=== PATIENT | female | born 1980 | race Asian ===

== ENCOUNTER → 2016-07-12 | Outpatient (CLI) | payer BC ==
[~2016-07-12] MED LIST: ASCO500C43; MTR600X PO; OXYC5TAB PO; PRENTAB26 PO; VITAMIN D
[2016-07-12 13:28] LABS: BASO % 0.2 %; BASO ABS # 0.01 K/uL (0-0.2); COMPLETE YES; EOS % 2.5 %; HEMATOCRIT 39.6 % (37-47); IG% 0.2 %; LYMPH ABS # 1.69 K/uL (1.2-3.4); MEAN CELL VOLUME 85.7 fL (80-100); MEAN CORPUSCULAR HEMOGLOBIN 27.9 pg (25-34); MEAN CORPUSCULAR HGB CONC 32.6 g/dl (32-36); MEAN PLATELET VOLUME 9.9 fL (7.4-10.4); MONO % 6.1 %; PLATELET COUNT 266 K/uL (130-400); RED BLOOD COUNT 4.62 M/uL (4.2-5.4); WHITE BLOOD COUNT 4.45 K/uL (4.8-10.8)
[2016-07-12 13:31] LABS: THYROID STIMULATING HORMONE 2.1 uIu/ml (0.300-4.500)
== END | disposition home or self-care (01) ==
LOC: C.LABMFLN 08:53
PROVIDERS: ATTEND Family Medicine
DX: R53.83 Other fatigue (principal); Z13.1 Encounter for screening for diabetes mellitus

== ENCOUNTER 2023-06-18 07:44 | Observation (INO) ==
[2023-06-18] MEDS ORDERED: ATROPINE SULFATE 0.1 MG/ML 10ML SYR IV PRN (08:24)
[2023-06-18] MEDS ORDERED: fentaNYL citrate PF 100 MCG/2 ML VIAL IV PRN (08:24)
[2023-06-18] MEDS ORDERED: ePHEDrine sulfate 50 MG/ML AMP IV PRN (08:24)
[2023-06-18] MEDS ORDERED: fentaNYL citrate PF 100 MCG/2 ML VIAL ONE (08:40)
[2023-06-18] MEDS ORDERED: MIDAZOLAM HCL 1 MG/ML 2ML VIAL ONE (08:40)
--- NOTE | 2023-06-18 08:41 | Anesthesiology Consultation ---
Date of Service June 18, 2023 Assessment & Plan Chart Review Chart Review: Acceptable Risk for Surgery Consults Requested none ASA ASA1 Proposed Anesthesia Anesthesia Type: General Risk / Benefits Reviewed With: PT / POA / Parent / Guardian, Accepts Plan and Informed Consent Obtained History Surgery Operation Date: 06/18/23 09:05 Proposed Procedures p Right Tibia Open Reduction Internal Fixation - Elton Jensen Garland MD Height/Weight Height: 5 ft 2 in Weight: 64.3 kg Allergies Allergy/AdvReac Type Severity Reaction Status Date / Time No Known Allergies Allergy Verified 06/18/23 08:29 Medications Home Medications Medication Instructions Recorded Confirmed Last Taken acetaminophen [Tylenol] 1,000 mg PO Q8 PRN Pain 05/16/20 06/18/23 06/17/23 15:00 glucosamine HCl 500 mg tablet 500 mg PO BID 02/22/22 06/18/23 06/16/23 multivitamin 1 tab PO QAM 02/22/22 06/18/23 06/16/23 cholecalciferol (vitamin D3) 125 25 mcg (0.2 x 125 mcg (5,000 04/08/23 06/18/23 06/16/23 mcg (5,000 unit) tablet unit)) PO DAILY #30 tabs hydrocodone 5 mg-acetaminophen 325 1 - 2 tab PO Q6H PRN pain #20 tabs 06/16/23 06/18/23 06/18/23 06:30 mg tablet NPO Date Last Intake of Fluids: 06/18/23 Time Last Intake of Fluids: 00:00 Date Last Intake of Solids: 06/18/23 Time Last Intake of Solids: 00:00 Past Medical History Medical History Medial epicondylitis, right elbow Common migraine Vitamin D insufficiency Encounter for mammogram to establish baseline mammogram Diabetes mellitus screening Lipid screening Preventive measure History of female infertility Exercise / Class Metabolic Activity II 4-5 Yardwork/Stairs/Walk up hill Past Family History Family History Father Hypertension Dyslipidemia Coronary heart disease Denies family history of Ovarian cancer Clotting disorder Breast cancer Uterine cancer Past Surgical History Surgical History Status post hysteroscopy History of section Past Anesthesia History No Hx of Anesthesia Complications and No Family Hx of Anesthesia Complications History of PONV No Hx of PONV and No Hx of Motion Sickness Social History Smoking Status: Never smoker Do You Dip or Chew Tobacco: No Hx Alcohol Use: Yes Physical Exam Vital Signs Last Vital Signs Temp 98.4 F 06/18/23 08:25 Pulse 69 06/18/23 08:25 Resp 16 06/18/23 08:25 BP 129/76 06/18/23 08:25 Pulse Ox 99 06/18/23 08:25 O2 Del Method Room Air 06/18/23 08:25 ENMT Mouth: no dentition abnormality Thyromental Distance: > or= 3.5 Finger Breadths Mallampati Class: II Neck normal visual inspection Respiratory normal respiratory effort Auscultation: lungs clear to auscultation bilaterally Cardiovascular Rate/Rhythm: regular rate and regular rhythm Testing Laboratory Results 06/18/23 07:55 POC Ur Test NEG
[2023-06-18] MEDS ORDERED: LIDOCAINE 2% 2 ML VIAL/AMP(20MG/ML) INFIL ONE (08:43)
[2023-06-18] MEDS ORDERED: PROPOFOL IV EMULSION 10 MG/ML 20 ML VIAL IV ONE (08:43)
[2023-06-18] MEDS ORDERED: ROCURONIUM BROMIDE 10 MG/ML 5 ML VIAL IV ONE (08:43)
[2023-06-18] MEDS ORDERED: DEXAMETHASONE SOD INJ 4 MG/ML VIAL ONE (08:44)
[2023-06-18] MEDS ORDERED: ONDANSETRON INJ 2 MG/ML 2 ML VIAL ONE ×2 (08:44→11:59)
--- NOTE | 2023-06-18 08:57 | History & Physical Bridge Note ---
Date of Service June 18, 2023 History & Physical Bridge Note I have examined the patient, reviewed the History & Physical and in the interval since the performance of the History & Physical I have noted the following changes of clinical significance: no changes noted
[2023-06-18] MEDS ORDERED: ROPIVACAINE 0.5% 5 MG/ML 30 ML VIAL ONE (09:01)
[2023-06-18] MEDS: LACTATED RINGER'S 1,000 ML IV SCH (09:05)
[2023-06-18] MEDS: ceFAZolin 2000MG 2,000 MG/15 ML SYR IV SCH (09:21)
[2023-06-18] MEDS ORDERED: HYDROmorphone INJ 2 MG/ML SYR/VIAL ONE (09:48)
[2023-06-18] MEDS ORDERED: GLYCOPYRROLATE 0.2 MG/ML VIAL ONE (11:53)
[2023-06-18] MEDS ORDERED: NEOSTIGMINE METHYLSULFATE 1 MG/ML 10ML VIAL ONE (11:53)
[2023-06-18] MEDS: BUPIVACAINE 0.5 % 5 MG/1 ML MPF 30ML VIAL ONE (12:07)
[2023-06-18] MEDS: LIDOCAINE 1%/EPINEPHRINE 1:100,000 20 ML VIAL ONE (12:08)
--- NOTE | 2023-06-18 12:33 | Post Operative Brief Note ---
Immediate Post Op Note v1 Date of Surgery June 18, 2023 Pre & Post Diagnosis Operation Date: 06/18/23 09:05 Pre-Op Diagnosis: Right Tibia Fracture Post-Op Diagnosis: Right Tibia Fracture I identified the patient and participated in the time-out.: Yes Procedure Operation Date: 06/18/23 09:05 Actual Procedures p Right Tibia Open Reduction Internal Fixation(Right) - Elton Garland MD Surgeon Elton Garland MD Well Logger C CARIDAD Montez (No fellow avil) Estimated Blood Loss 25 Findings Consistent with Post-Op Diagnosis Fluids 900 cc Complications none
--- NOTE | 2023-06-18 12:35 | Operative Report ---
Post Operative Report Pre & Post Diagnosis Operation Date: 06/18/23 09:05 Pre-Op Diagnosis: Right Distal 1/3 Tibia Fracture Post-Op Diagnosis: Right Distal 1/3 Tibia Fracture I identified the patient and participated in the time-out.: Yes Procedure Operation Date: 06/18/23 09:05 Actual Procedures p Right Distal 1/3 Tibia Fracture Open Reduction Internal Fixation(Right) - Elton Garland MD Surgeon Elton Garland MD Restaurant And Bar Manager FANNY Holt-C (No fellow avil) Estimated Blood Loss 25 Findings See Below Displaced, rotated Right Distal 1/3 Tibia Fracture Fluids 900 cc Specimens n/a Anesthesia Type General Regional Complications none Indications The patient is a 43 year old female who injured their right ankle ice skating, sustaining a displaced distal third tibia fracture. The patient understands the risks of surgery, which include but are not limited to: bleeding, infection, re- operation, damage to nerves and arteries, continued pain, loss of reduction, hardware failure, the need for repeat surgery, decrease level of activity, compartment syndrome, and DVT. The patient understand all of these instructions and explanations, all of their questions have been satisfactorily addressed. The patient have elected to proceed with surgery and the informed consent was signed. Description of Procedure IMPLANTS: Tibia 1. 11 hole 3.5 mm Anterolateral Distal Tibia locking plate (Synthes). 2. 3.5 mm locking screws (24 x 4, 28 x 4, & 34 mm). 3. 3.5 mm cortical screws (22 mm). 4. 3.5 mm lag screw (26 & 30 mm). FANNY Holt is assisting with positioning, retraction, closure, and splinting due to fellow not available. PROCEDURE: The patient was taken to the Operating Room and placed in the supine position on the operating table. After general anesthetic was administered a multidisciplinary time-out was performed identifying my initials on the right limb as the correct and operative limb. Prior to the incision being made, 2 grams of intravenous Ancef were given. The right leg was prepped and draped in the standard fashion. The distal fibula and tibia were marked as well as the planned incision centered about the distal fibula 15 cm in length and started 1-2 cm lateral to the anterior crest and toward the 4th metatarsal. The planned incisions were injected with a 50:50 mixture of 1% lidocaine with epi and 0.5 % Marcaine plain for a total of 20 cc. The skin incision was made and carefully carried down to the fascia identifying the superficial Peroneal nerve and Deep Peroneal Nerve, Vein, artery were protected throughout. There was a rent in the fascia anteriorly and hematoma was evacuated immediately. There was some periosteal stripping. The fracture site was debrided with copious irrigation, dental pick, and removing any soft tissue and hematoma. There was noted comminution and slight deformity formation at the apex of the proximal medial fragment shortening and rotation. A reducti on maneuver was performed with traction and internal rotation. Using a pointed reduction clamp to hold the fracture in place, a 2nd pointed reduction clamp was also used to maintain the reduction. A 3.5 mm lag screw was used and placed from anterior-medial to distal-lateral in the standard fashion. A 2nd 3.5 mm lag screw was used and placed from anterior-lateral to medial-posterior in the standard fashion. The pointed reduction clamps were able to be removed at that point. The 11 hole plate appeared to fit best and after contouring the plate to fit the bone distal anterior, a nonlocking 3.5 mm screw was placed both in the proximal and distal fragments securing the plate down to the bone. Then locking screws were placed in the standard fashion. The distal cortical screw was removed and replaced with a locking screw. Fluoroscopy was brought in to ensure an anatomic reduction. External rotation testing showed the syndesmosis to be stable. The wounds were copiously irrigated. Final x-rays were obtained. The ankle joint capsule was closed with 0 Vicryl. The fascia was left open. The periosteum distally was closed with 0 Vicryl. The deep subcutaneous soft tissue was closed with 2-0 Vicryl and the subcutaneous layer was closed with 3-0 Vicryl. The skin was closed with meghana. The sponge and needle counts were correct. The wounds were covered with Xeroform, 4x4's, ABD's, Steril cast padding, and an AO splint was placed. The patient was awakened and taken to the recovery room in stable condition. Post-op Instructions: The patient will remain NWB until switched to cam boot and then will be allowed to be TTWB. The patient will be admitted for observation. Pain medicine will be given. PT/OT, and discharge planning will see the patient tomorrow. DVT prophylaxis will continue with TEDs and foot pump on the right lower extremity and 81 mg ASA BID for 4 weeks. I attest to the content of the Intraoperative Record and any orders documented therein. Any exceptions are noted below.
--- NOTE | 2023-06-18 12:38 | Operative Report ---
Post Operative Report Pre & Post Diagnosis Operation Date: 06/18/23 09:05 Pre-Op Diagnosis: Right Tibia Fracture Post-Op Diagnosis: Right Tibia Fracture I identified the patient and participated in the time-out.: Yes Procedure Operation Date: 06/18/23 09:05 Actual Procedures p Right Tibia Open Reduction Internal Fixation(Right) - Elton Jensen Garland MD Surgeon Mir Garland MD Oxidized Finish Plater C CARIDAD Montez (No fellow avil) Estimated Blood Loss 25 Findings Consistent with Post-Op Diagnosis see operative report Specimens none Drains none Complications none Disposition Accompanied Patient To Recovery: Yes Indications This 43 year old female injured herself while ice-skating. She fell and sustained a right tibial fracture. She was initially evaluated in the ED. The patient elected to proceed with surgical intervention after being educated about potential risks and outcomes. Preoperative imaging was obtained. Description of Procedure The patient was taken to the operating room where she was given general anesthesia. She was prepped and draped in usual sterile fashion. Please see Dr. Garland's operative report for specifics of the procedure. I was present for the entire case from initial patient positioning through final wound closure. Assistance was provided in patient positioning, tissue retraction, hemostasis, fracture reduction, hardware placement, and final wound closure. The patient was taken to the recovery room in satisfactory condition. I attest to the content of the Intraoperative Record and any orders documented therein. Any exceptions are noted below.
--- NOTE | 2023-06-18 13:16 | Fluoroscopy Report ---
FL tibia/fibula RT 2V CLINICAL HISTORY: Right tib/fib ORIF TECHNIQUE: 3 views were obtained with the C-arm in the OR with the above procedure. Total fluoroscopy time was 18.8 seconds. Radiation dose was 0.43 mGy. Comparison: Comparison is made to tibia and fibular radiograph 06/16/2023 FINDINGS/IMPRESSION: Intraoperative images were obtained of the tibia and fibula open reduction inter nal fixation. Please correlate with intraoperative fluoroscopy and operative report. ACT 112: Negative or not required by law. Electronically signed by: Ramez Fam M.D. 06/18/2023 1:14 PM
[2023-06-18] MEDS: ACETAMINOPHEN 1000 MG/100 ML IV IV ONE (13:25)
[2023-06-18] MEDS: ACETAMINOPHEN 1,000 MG/100 ML VIAL IV STA (13:25)
[2023-06-18] MEDS: ONDANSETRON INJ 2 MG/ML 2 ML VIAL IV PRN (13:29)
--- NOTE | 2023-06-18 13:38 | Anesthesiology Progress Note ---
Date of Service June 18, 2023 Anesthesia Post Procedure Vital Signs Vital Signs: Temp Pulse Resp BP Pulse Ox O2 Del Method O2 Flow Rate 06/18/23 13:35 82 18 134/81 98 Room Air 06/18/23 13:25 92 H 18 138/86 99 Room Air 06/18/23 13:15 36.4 C L 77 16 125/80 100 Room Air 06/18/23 13:05 74 12 121/73 100 Oxymask 2 06/18/23 12:55 78 14 130/87 100 Oxymask 4 06/18/23 12:45 75 12 119/84 100 Oxymask 4 06/18/23 12:35 36.3 C L 98 H 16 128/82 99 Oxymask 6 06/18/23 08:25 36.9 C 69 16 129/76 99 Room Air 06/18/23 08:05 36.9 C 69 16 129/76 99 Room Air Pain Intensity Right Leg: Pain Intensity: 2 Head: Pain Intensity: 5 Transfer of Care Handoff Completed per policy Notes Mental Status: alert / awake / arousable Patient Amnestic to Procedure: Yes Nausea / Vomiting: adequately controlled Pain: adequately controlled Airway Patency, RR, SpO2: stable & adequate BP & HR: stable & adequate Hydration State: stable & adequate Anesthetic Complications: no major complications apparent
[2023-06-18] MEDS ORDERED: bisacodyL 10 MG SUPP PR PRN (14:09)
[2023-06-18] MEDS ORDERED: NALOXONE HCL 0.4 MG/1 ML VIAL/CARP IV PRN (14:09)
[2023-06-18] MEDS ORDERED: diphenhydrAMINE 50 MG/ML VIAL IV PRN (14:09)
[2023-06-18] MEDS ORDERED: ALUMINUM/MAGNESIUM SUSP 30 ML UDC PO PRN (14:09)
[2023-06-18] MEDS ORDERED: METOCLOPRAMIDE HCL INJ 5 MG/ML 2 ML VIAL IV PRN (14:09)
[2023-06-18] MEDS ORDERED: HYDROmorphone INJ 0.5 MG/0.5 ML SYR IV PRN (14:09)
[2023-06-18] MEDS ORDERED: ONDANSETRON INJ 2 MG/ML 2 ML VIAL IV PRN (14:09)
[2023-06-18] MEDS ORDERED: MAGNESIUM HYDROXIDE SUSP 30 ML UDC PO PRN (14:09)
[2023-06-18] MEDS: ACETAMINOPHEN 500 MG TAB PO SCH (14:23)
[2023-06-18] MEDS: SODIUM CHLORIDE 0.9% 1,000 ML IV SCH (14:24)
[2023-06-18] MEDS: Patient's HEIGHT &/or WEIGHT Needed SCH (14:39)
[2023-06-18] MEDS: FERROUS GLUCONATE 324 MG TAB PO SCH (16:04)
[2023-06-18] MEDS: ASCORBIC ACID 500 MG TAB PO SCH (16:04)
[2023-06-18] MEDS: ceFAZolin 1000MG 1,000 MG/7.5 ML SYR IV SCH (17:46)
[2023-06-18] MEDS: oxyCODONE HCL IR 5 MG TAB (IMMEDIATE RELEASE) PO PRN (18:22)
--- NOTE | 2023-06-18 20:15 | Orthopedic Progress Note ---
Date of Service June 18, 2023 Assessment & Plan (1) Closed fracture of right distal tibia: Plan: POD #0 s/p ORIF R Tibia, doing as well as expected, block still working. Resume diet. NWB RLE. RICE OOB to chair. Continue pain control. Check labs tomorrow. DVT prophylaxis: TEDs 3 weeks, foot pumps while in hospital, ASA 81 mg BID for 4 weeks. PT/OT. D/C planning. Present on Admission?: Yes Admission and Anticipated Discharge Date Admission Date: June 18, 2023 Subjective Pain is manageable. Still can not feel her foot. Physical Exam Physical Exam: RLE: Sensation to light touch is absent from mid-tibia to foot. Unable to wiggle toes. BCR < 2 sec. Calf soft and non-tender. Splint is in place, clean, dry, intact. Results & Data Vital Signs (Past 12 Hours) Vital Signs Temp Pulse Pulse Resp BP Pulse Ox O2 Del Method 06/18/23 17:18 37 C 90 16 111/69 97 Room Air 06/18/23 16:07 37.0 C 80 16 119/78 98 Room Air 06/18/23 15:06 36.8 C 83 16 107/72 99 Room Air 06/18/23 14:33 36.7 C 73 16 116/79 98 Room Air 06/18/23 14:09 36.7 C 88 14 109/71 98 Room Air 06/18/23 13:45 71 12 115/74 99 Room Air 06/18/23 13:35 82 18 134/81 98 Room Air 06/18/23 13:25 92 H 18 138/86 99 Room Air 06/18/23 13:15 36.4 C L 77 16 125/80 100 Room Air 06/18/23 13:05 74 12 121/73 100 Oxymask 06/18/23 12:55 78 14 130/87 100 Oxymask 06/18/23 12:45 75 12 119/84 100 Oxymask 06/18/23 12:35 36.3 C L 98 H 16 128/82 99 Oxymask 06/18/23 08:25 36.9 C 69 16 129/76 99 Room Air O2 Flow Rate 06/18/23 17:18 06/18/23 16:07 06/18/23 15:06 06/18/23 14:33 06/18/23 14:09 06/18/23 13:45 06/18/23 13:35 06/18/23 13:25 06/18/23 13:15 06/18/23 13:05 2 06/18/23 12:55 4 06/18/23 12:45 4 06/18/23 12:35 6 06/18/23 08:25
[2023-06-18] MEDS: SENNA 8.6 MG TAB PO SCH (20:50)
[2023-06-18] MEDS: DOCUSATE SODIUM 100 MG CAP PO SCH (20:50)
[2023-06-18] MEDS: ASPIRIN 81 MG ECTAB PO SCH (20:50)
[2023-06-19] MEDS ORDERED: LACTATED RINGER'S 1,000 ML IV SCH (06:00)
[2023-06-19] MEDS ORDERED: ceFAZolin 2000MG 2,000 MG/15 ML SYR IV SCH (06:00)
[2023-06-19] MEDS: MULTIVITAMIN TAB PO SCH (07:37)
--- NOTE | 2023-06-19 10:30 | Orthopedic Progress Note ---
Date of Service June 19, 2023 Assessment & Plan (1) Closed fracture of right distal tibia: Plan: POD #1 s/p ORIF R Tibia, doing as well as expected. Resume diet. NWB RLE with crutches or walker assistance. RICE OOB to chair. Continue pain control. DVT prophylaxis: TEDs 3 weeks, foot pumps while in hospital, ASA 81 mg BID for 4 weeks. PT/OT. Plan for discharge to home today and follow up as scheduled. All questions answered. Findings discussed with Dr. Garland. Admission and Anticipated Discharge Date Admission Date: June 18, 2023 Subjective Patient doing well today. Denies any nausea or vomiting. Denies any lightheadedness or dizziness. Has been out of bed with physical therapy and Occupational Therapy. Feels that she is able to return home today. Physical Exam Musculoskeletal: Exam of the right lower extremity: The splint is clean, dry and intact. Mild no significant edema of her toes right foot. She tolerates gentle range of motion of the right knee. Capillary fill is brisk. Toes are warm. Able to wiggle the toes without difficulty. Results & Data Vital Signs (Past 12 Hours) Vital Signs Temp Pulse Resp BP Pulse Ox O2 Del Method 06/19/23 10:25 36.7 C 70 16 112/73 100 06/19/23 07:51 36.7 C 70 16 112/73 100 Room Air 06/19/23 03:10 37.4 C 88 18 102/69 95 Room Air 06/18/23 22:30 36.7 C 94 H 16 109/69 97 Room Air
--- NOTE | 2023-06-19 10:32 | Discharge Summary ---
Date of Service June 19, 2023 Discharge Data Procedures Performed Operation Date: 06/18/23 09:05 Actual Procedures p Right Tibia Open Reduction Internal Fixation(Right) - Elton Garland MD Hospital Course (1) Closed fracture of right distal tibia: Patient was kept in observation at [facility] after undergoing an open reduction internal fixation of a right tibia fracture on June 18, 2023. Her surgery was performed with general anesthesia and a peripheral nerve block. She tolerated the procedure well without any intraoperative complications. She was given 2 g of IV Ancef preoperatively for surgical prophylaxis which was continued for 24 hours after surgery. Intraoperative x-ray showed adequate alignment of the fracture with hardware. Her home medications were continued. She was given a regular diet during her inpatient stay. Her vital signs remained stable. She was allowed out of bed to chair and nonweightbearing on the right lower extremity with crutches or walker assistance. She was given oxycodone and IV Dilaudid as needed for pain. Also extra strength Tylenol. Her pain was well-controlled with oral medications. Physical therapy and Occupational Therapy consults were placed. She was given STEPHANI stockings on the left leg with AV impulse boots on the left leg and started on aspirin 81 mg twice daily for 4 weeks after surgery. She was seen evaluated by physical therapy and was deemed safe for discharge to her home. She was discharged to her home in stable condition on June 19, 2023.
== END 2023-06-19 13:50 | disposition home or self-care (01) ==
LOC: ASU 07:44 → INTOOBSV 12:50 → 3W 12:50
DX: W00.0XXA Fall on same level due to ice and snow, initial encounter; S82.301A Unspecified fracture of lower end of right tibia, initial encounter for closed fracture